=== PATIENT | male | born 1975 | race Caucasian/White ===

== ENCOUNTER 2019-03-21 14:31 | Emergency (ER) | payer OTHER ==
[2019-03-21 14:43] VITALS: BP 136/89
--- NOTE | 2019-03-21 14:59 | ED Physician Documentation ---
PD HPI BACK PAIN - Stated complaint Stated Complaint: BACK PX - Chief complaint Chief Complaint: Back Pain - History obtained from History obtained from: Patient - History of Present Illness Timing - onset: How many hours ago (1) Timing - duration: Hours (1) Timing - details: Abrupt onset Pain level max: 10 Pain level now: 4 Location: Lower Quality: Pain, Spasm Associated symptoms: No: Fever, Weakness, Numbness, Incontinent of urine, Unable to urinate, Hematuria, Incontinent of stool Improves with: Rest Worsened by: Movement Contributing factors: Lifting (moving furniture). No: Twisting, Trauma, Anticoagulated, Cancer, IVDA, Out of meds Similar symptoms before: Diagnosis (back spasm in the past) Recently seen: Not recently seen - Additional information Additional information: did not take anything for pain today. Review of Systems Constitutional: denies: Fever, Chills Cardiac: denies: Chest pain / pressure Respiratory: denies: Cough GI: denies: Vomiting, Diarrhea Skin: denies: Rash Musculoskeletal: denies: Neck pain Neurologic: denies: Focal weakness, Numbness, Headache PD PAST MEDICAL HISTORY - Past Medical History Past Medical History: No - Past Surgical History Past Surgical History: No - Present Medications Home Medications: Ambulatory Orders Medication Instructions Recorded Confirmed Cyclobenzaprine [Flexeril] 10 mg PO TID PRN #20 tablet 03/21/19 Meloxicam [Mobic] 15 mg PO DAILY PRN #20 tablet 03/21/19 - Allergies Allergies/Adverse Reactions: Allergies Allergy/AdvReac Type Severity Reaction Status Date / Time No Known Drug Allergies Allergy Verified 03/21/19 14:37 - Social History Does the pt smoke?: No Smoking Status: Never smoker Does the pt drink ETOH?: No Does the pt have substance abuse?: No - Immunizations Immunizations are current?: Yes - POLST Patient has POLST: No PD ED PE NORMAL - Vitals Vital signs reviewed: Yes - General General: Alert and oriented X 3, No acute distress, Well developed/nourished - HEENT HEENT: Moist mucous membranes - Neck Neck: Supple, no meningeal sign - Cardiac Cardiac: RRR, Strong equal pulses - Respiratory Respiratory: No respiratory distress, Clear bilaterally - Abdomen Abdomen: Soft, Non tender, Non distended - Back Back: Other (no midline TTP. NVI. paraspinal spasm present. 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 Normal great toe extension bilaterally. no saddle anesthesia) - Psych Psych: Normal mood, Normal affect Results - Vitals Vitals: Vital Signs - 24 hr 03/21/19 14:35 Temperature 36.2 C L Heart Rate 94 Respiratory 18 Rate Blood Pressure 136/89 H O2 Saturation 98 PD MEDICAL DECISION MAKING - ED course Complexity details: re-evaluated patient, considered differential (No cauda equina, no spinal epidural abscess, no fracture, no aortic dissection or evidence of aneursym rupture), d/w patient ED course: Pain improved with toradol and flexeril. no evidence of fracture on exam. No evidence of cauda equina or epidural abscess. We will have him follow-up with his doctor for further care. No acute neurological deficits. Patient counseled regarding signs and symptoms for which I believe and urgent re-evaluation would be necessary. Patient with good understanding of and agreement to plan and is comfortable going home at this time This document was made in part using voice recognition software. While efforts are made to proofread this document, sound alike and grammatical errors may occur. Departure - Departure Disposition: 01 Home, Self Care Clinical Impression: Back muscle spasm Condition: Good Instructions: ED Spasm Back No Trauma Follow-Up: your,doctor in 3 days [Other] Prescriptions: Cyclobenzaprine [Flexeril] 10 mg PO TID PRN #20 tablet PRN Reason: Spasms Meloxicam [Mobic] 15 mg PO DAILY PRN #20 tablet PRN Reason: pain Comments: Return if you worsen. You should have an MRI of your lumbar spine with your doctor. Do not drive or operate heavy machinery while taking the Flexeril. Discharge Date/Time: 03/21/19 16:02
[2019-03-21] MEDS ORDERED: KETOROLAC 60 MG/2 ML VIAL IM STA (15:00)
[2019-03-21] MEDS ORDERED: CYCLOBENZAPRINE 10 MG TABLET PO STA (15:00)
== END 2019-03-21 16:02 | disposition home or self-care (01) ==
LOC: ED 14:31
DX: M62.830 Muscle spasm of back (principal); M54.5 Low back pain; X50.0XXA Overexertion from strenuous movement or load, initial encounter; Y93.89 Activity, other specified
CPT/HCPCS: 96372; 99283; 99284; A9270

== ENCOUNTER 2020-02-19 14:22 | Emergency (ER) | payer OTHER ==
--- NOTE | 2020-02-19 15:13 | ED Physician Documentation ---
History of Present Illness - Stated complaint Stated Complaint: BACK PX - Chief complaint Chief Complaint: Back Pain - History obtained from History obtained from: Patient, Family - History of Present Illness Timing: Today - Additonal information Additional information: 44 y/o male with acute back spasm after bending to pick something up has marked spasm of his back and is unable to move without severe pain. Review of Systems Constitutional: denies: Fever Ears: denies: Ear pain Nose: denies: Congestion Throat: denies: Sore throat Respiratory: denies: Cough GI: denies: Vomiting : denies: Dysuria, Frequency Skin: denies: Rash Musculoskeletal: reports: Back pain. denies: Neck pain, Extremity pain Neurologic: reports: Numbness (to fingertips). denies: Generalized weakness, Focal weakness PD PAST MEDICAL HISTORY - Past Medical History Past Medical History: No Cardiovascular: None Respiratory: None Neuro: None Endocrine/Autoimmune: None GI: None : None HEENT: None Psych: None Musculoskeletal: None Derm: None - Past Surgical History Past Surgical History: No - Present Medications Home Medications: Ambulatory Orders Medication Instructions Recorded Confirmed Cyclobenzaprine [Flexeril] 10 mg PO TID PRN #20 tablet 03/21/19 Meloxicam [Mobic] 15 mg PO DAILY PRN #20 tablet 03/21/19 Cyclobenzaprine [Flexeril] 10 mg PO TID PRN #20 tablet 02/19/20 Meloxicam 15 mg PO DAILY #20 tablet 02/19/20 - Allergies Allergies/Adverse Reactions: Allergies Allergy/AdvReac Type Severity Reaction Status Date / Time No Known Drug Allergies Allergy Verified 02/19/20 14:30 - Social History Does the pt smoke?: No Smoking Status: Never smoker Does the pt drink ETOH?: No Does the pt have substance abuse?: No - Immunizations Immunizations are current?: Yes - POLST Patient has POLST: No PD ED PE NORMAL - Vitals Vital signs reviewed: Yes (tachy and hypertensive ) - General General: Alert and oriented X 3, No acute distress, Well developed/nourished - HEENT HEENT: Atraumatic, PERRL, EOMI - Cardiac Cardiac: Other (tachy ) - Respiratory Respiratory: No respiratory distress - Abdomen Abdomen: Soft, Non tender - Back Back: No CVA TTP, No spinal TTP, Other (paraspinous muscle tenderness bilaterally ) - Derm Derm: Normal color, Warm and dry, No rash - Extremities Extremities: No deformity, No edema - Neuro Neuro: Alert and oriented X 3, 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, No motor deficit, No sensory deficit, Normal speech Eye Opening: Spontaneous Motor: Obeys Commands Verbal: Oriented GCS Score: 15 - Psych Psych: Normal mood, Normal affect Results - Vitals Vitals: Vital Signs - 24 hr 02/19/20 02/19/20 02/19/20 14:27 16:03 16:11 Temperature 37.1 C 36.4 C L 36.5 C Heart Rate 103 H 82 76 Respiratory 18 18 22 Rate Blood Pressure 145/105 H 133/93 H 133/93 H O2 Saturation 96 98 98 Oxygen O2 Source Room air Procedures - IVC sono (time) 1525 Bedside IVC sono: IVC measures (cm) (0.92), IVC collapsed c insp (cm) (complete), Dehydration (est 2 lilter deficit) PD MEDICAL DECISION MAKING - ED course Complexity details: reviewed results, re-evaluated patient, considered differential, d/w patient, d/w family ED course: 44-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 He has severe pain in his lower back and any movement causes pain to worsen. He does not remember drinking anything. Departure - Departure Disposition: 01 Home, Self Care Clinical Impression: Back muscle spasm, Dehydration Instructions: ED Spasm Back No Trauma, ED Dehydration Follow-Up: [facility] [Provider Group] Prescriptions: Cyclobenzaprine [Flexeril] 10 mg PO TID PRN #20 tablet PRN Reason: Spasms Meloxicam 15 mg PO DAILY #20 tablet Discharge Date/Time: 02/19/20 16:11
[2020-02-19] MEDS ORDERED: KETOROLAC 60 MG/2 ML VIAL IM STA (15:28)
[2020-02-19] MEDS ORDERED: CHERRY SYRUP 10 ML UDC PO ONE (15:29)
[2020-02-19] MEDS ORDERED: DEXAMETHASONE 10 MG/ML VIAL PO STA (15:29)
[2020-02-19 16:04] VITALS: BP 133/93
== END 2020-02-19 16:11 | disposition home or self-care (01) ==
LOC: ED 14:22
DX: M62.830 Muscle spasm of back (principal); M54.5 Low back pain; E86.0 Dehydration; R00.0 Tachycardia, unspecified
CPT/HCPCS: 96372; 99283; 99284; A9270

== ENCOUNTER 2020-12-18 13:00 | Outpatient (CLI) | payer OTHER ==
[2020-12-18 14:14] VITALS: BP 159/90
--- NOTE | 2020-12-18 14:14 | SLEEP CARE CONSULTATION ---
Information from patient questionnaire entered by Danyelle Cristobal. I have reviewed and concur with the information entered by Danyelle Cristobal. This document represents the service I personally performed and the decisions made by me, Smita Laird MD, [facility]. History of Present Illness Service Date and Time: 12/18/2020 1300 Reason for Visit: New patient Chief Complaint: reports: Unrefreshed sleep, Snoring, Fatigue, Frequent awakenings at night, Other (Sore throat, periods of insomnia, mental exhaustion) Date of Onset: 2 1/2 years Usual bedtime: Varies on work schedule Time it takes to fall asleep: Varies Snores at night: Yes Observed to quit breathing while asleep: No Sleeps alone due to snoring: Yes Number of times waking at night: 3-4 times Reasons for waking at night: reports: Snoring, Pain, Other (Noise, unknown reason) Toss, Turn, or Twitch while sleeping: Yes Recalls having dreams: No Usually gets out of bed at: Varies w/schedule Feels refreshed in the morning: No Morning headache: Yes (w/caffeine) Sleepy or fatigued during the day: Yes Ever fallen asleep while driving: Yes Takes day naps: Yes Dreams during day naps: No Prior sleep studies: No Additional HPI information: I had the pleasure of seeing Mr. Palacio today regarding the possibility of him having a sleep disorder. As you know, he is a 45 year old gentleman who complains of insomnia and loud snore. 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 This means he will have to wake up at 4:30 am and does not come home until 7:30 pm. He will then have 2 days off. His told him he snore loudly. She has never seen him quit breathing. He has wakened up from his own snore. He has morning headache that goes away quickly. He has fallen asleep driving. He has hypertension a took medication in the past. 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 Patient is and lives in [place]. Have you smoked in the past 12 months: No Alcohol use: Yes Alcohol amount and frequency: 3-5, 4 times a week Caffeine use: Yes Caffeine amount and frequency: 3-5 a day Family History Family history of sleep disordered breathing: No Allergies and Home Medications Drug allergies reviewed: Yes Home medication list reviewed: Yes (none) Review of Systems Weight gain over past 5 years: 20-25 Cardiovascular: reports: high blood pressure, have to sleep sitting up Respiratory: denies: shortness of breath, wheeze, sputum production, chronic cough, other Gastrointestinal: reports: heartburn, vomitting, diarrhea Urinary: reports: impotence Neurological: reports: headaches Psychiatric: reports: mood disorder, other (PTSD) Ear/Nose/Throat: reports: nasal congestion, sinus problems, dry mouth/throat, hoarseness, wisdom teeth removed Endocrine: reports: sluggishness (tired), increased appetite Musculoskeletal: reports: joint pain (stiffness), neck pain, back pain, muscle pain or cramping Immunologic: reports: sneezing (runny nose), itching Physical Exam Vital signs obtained and entered by: Dr. Laird Blood Pressure: 159/90 Heart Rate: 111 O2 Saturation: 98 Height: 5 ft 10 in Weight: 220 lb Body Mass Index: 31.5 BMI Classification: Obese Neck circumference: 17.5 Mood/affect: somewhat depressed HEENT: No craniofacial malformation Nostrils: patent to airflow Turbinates: normal Septum: midline Mouth and throat: narrow oropharynx Soft palate: long Hard palate: normal Uvula: normal Uvula visualization: 50% Mallampati Class II Tongue: normal in size Tonsils: small Chin and jaw: normal size and position Impression and Plan IMPRESSION: 1. Obstructive Sleep Apnea-Hypopnea Syndrome, as suggested by history of loud snoring, frequent awakenings during the night, unrefreshed sleep , cognitive impairment, and daytime hypersomnolence. Narrow oropharynx and obesity are common predisposing factors for obstructive sleep apnea-hypopnea syndrome. Untreated obstructive sleep apnea can also cause hypertension. For further evaluation, a home sleep apnea test (HSAT) will be ordered. Plan: 1. Schedule a home sleep apnea test (HSAT). 2. Avoid long distance driving or when feeling sleepy. 3. Avoid alcohol, sedative and muscle relaxant around bedtime. 4. Attempt to lose weight. 5. Return for follow up after the test. Counseling Topics: Weight control Follow up recommended for: High blood pressure Visit Type: In Office Time Spent with Patient (minutes): 15 Provider Statement: I spent 100% of the Face to Face Visit with the patient with greater than 50% spent counseling the patient and coordination of care.
== END 2020-12-18 13:01 | disposition home or self-care (01) ==
LOC: SC 13:00
PROVIDERS: ATTEND Internal Medicine Pulmonary Disease
DX: G47.10 Hypersomnia, unspecified (principal); R06.83 Snoring; G47.8 Other sleep disorders; R41.89 Other symptoms and signs involving cognitive functions and awareness; E66.9 Obesity, unspecified; Z68.31 Body mass index [BMI] 31.0-31.9, adult
CPT/HCPCS: 99202; 99212

== ENCOUNTER 2020-12-20 14:02 | Outpatient (CLI) | payer OTHER | END 2020-12-20 14:03 | disposition home or self-care (01) | LOC: SC 14:02 | PROVIDERS: ATTEND Internal Medicine Pulmonary Disease | DX: G47.33 Obstructive sleep apnea (adult) (pediatric) (principal); R09.02 Hypoxemia | CPT/HCPCS: 95806 ==

== ENCOUNTER 2020-12-27 14:28 | Outpatient (CLI) | payer OTHER ==
--- NOTE | 2020-12-27 14:58 | SLEEP CARE CONSULTATION ---
Information from patient questionnaire entered by Faith Juarez. I have reviewed and concur with the information entered by Faith Juarez. This document represents the service I personally performed and the decisions made by , Ale Ramirez ARNP. History of Present Illness Service Date and Time: 12/27/20201427 Initial [place] Sleepiness Scale score: 14 (in 2020) Current [place] Sleepiness Scale score: 17 Additional HPI information: BIBIANA HALE returns for follow up and results of the recently performed home sleep study. I explained the pathophysiology behind obstructive sleep apnea. We then spent quite a bit of time discussing different treatment options. For mild obstructive sleep apnea, surgery and oral appliance are alternatives to nasal CPAP therapy but in moderate or severe cases, nasal CPAP is the most effective and reliable treatment. Because apnea is primarily in supine position, then positional management therapy could be effective. Methods discussed such as positioning with pillows, using a T-shirt with tennis balls in the back, and shown commercial products that have a pillow format on back to prevent supine sleep. I reviewed the impact of weight changes on sleep apnea and strongly recommended losing weight. After some discussion, the patient opted to go with the nasal CPAP therapy. Nasal autoCPAP set at 4-15 cmH20 will be ordered with rationale explained. A manual titration study will be ordered if unable to find optimal pressure with office adjustments. I explained how CPAP machine works with sample devices Respironics Dreamstation and ResflexReceipts [id number] and what to expect when using the machine. Using CPAP every night in order to get used to it was emphasized. Patient advised to put CPAP mask on before getting into bed so as not to fall asleep without CPAP. To assist acclimation to CPAP use, it could also be used for a short time during day while reading or watching TV. The patient was instructed to call the CPAP supplier to discuss any mechanical problem that may occur. If the mask given is uncomfortable or is difficult to keep on through the night even with adjustment, contact the CPAP supplier as many will replace with another mask style if notified before 30 days. If snoring or perceives is not getting enough air or too much air from the machine, notify this office. [facility] patient education PAP tips reviewed and given to patient. Patient counseled not drink alcohol less than 4 hours before bedtime as it can increase snoring and apnea. Patient was cautioned about risks of drowsy driving until sleepiness symptoms resolve. Sleep Study - Results Type of Sleep Study: Home sleep study Prior sleep studies: No Polysomnography/Home Sleep Study results: Physician Impression: The quality of the study is good. The length of the study is adequate (> 240 minutes). Please also see the tabulated and graphic data. 1. Obstructive Sleep Apnea-Hypopnea (ICD-10 G47.33), moderate, with an AHI of 19.0/hr and rodo SaO2 of 77%. During the study, the patient had 65 apneas (64 obstructive, 1 central, 0 mixed) and 97 hypopneas. The longest episode lasted 74.5 seconds. The respiratory events occurred slightly more frequently during supine sleep (supine AHI was 25.9 and non-supine, 17.62). 2. Hypoxemia (ICD-10 R09.02), moderate, with the lowest oxygen saturation of 77 % and 18.4 minutes with SaO2 under 90%. Baseline oxygen saturation was normal (Average oxygen saturation was 93%). Allergies and Home Medications Home medication list reviewed: Yes (no changes) Review of Systems Review of systems same as previous: Yes (no changes) Physical Exam Heart Rate: 79 O2 Saturation: 98 Height: 5 ft 10 in Weight: 226 lb Body Mass Index: 32.4 BMI Classification: Obese Impression and Plan 1. Obstructive Sleep Apnea-Hypopnea Syndrome, moderate, with lowest oxygen saturation of 77%. Obviously this is the cause of the patients symptoms of unrefreshed sleep, and excessive daytime sleepiness. Positive pressure therapy could benefit hypertension, anxiety, gastric reflux and mood disorders. As mentioned above, the patient will be started on nasal autoCPAP therapy with pressure set at 4-15 cmH2O. A manual titration study will be completed if unable to find optimal treatment pressure with office adjustments. Compliance guidelines also reviewed. A copy of compliance guidelines will be given for reference at check out. Because the apnea is more severe supine, I instructed to avoid sleeping supine using pillow positioning until able to start CPAP use. 2. Hypoxemia, moderate, with the lowest oxygen saturation of 77 % and 18.4 minutes with SaO2 under 90%. His baseline oxygen saturation was normal with an average oxygen saturation of 93%. * Nasal auto CPAP therapy, pressure at 4-15 cm H2O. * Attempt to lose weight. * Avoid alcohol consumption near bedtime. * Avoid supine sleep until using CPAP. * The patient is again cautioned about driving until sleepiness completely resolves. * Return one month after CPAP obtained. I will assess response to therapy and compliance at that time. Counseling Topics: Weight loss health impact Visit Type: In Office Time Spent with Patient (minutes): 20 Provider Statement: I spent 100% of the Face to Face Visit with the patient with greater than 50% spent counseling the patient and coordination of care.
== END 2020-12-27 14:29 | disposition home or self-care (01) ==
LOC: SC 14:28
PROVIDERS: ATTEND Nurse Practitioner Family
DX: G47.33 Obstructive sleep apnea (adult) (pediatric) (principal); R09.02 Hypoxemia; E66.9 Obesity, unspecified; Z68.32 Body mass index [BMI] 32.0-32.9, adult
CPT/HCPCS: 99212; 99213

== ENCOUNTER 2021-02-21 10:19 | Outpatient (CLI) | payer OTHER ==
--- NOTE | 2021-02-21 10:37 | SLEEP CARE CONSULTATION ---
Information from patient questionnaire entered by Danyelle Cristobal. I have reviewed and concur with the information entered by Danyelle Cristobal. This document represents the service I personally performed and the decisions made by , Ale Ramirez ARNP. History of Present Illness Service Date and Time: 02/21/2021 1019 Previous diagnosis: Moderate, Obstructive Sleep Apnea-Hypopnea Syndrome AHI: 19.0 Reason for follow up: first compliance (Set up 01/19) Equipment obtained from: Other ([facility]; got initial supplies) Mask style: Full face Backup mask available: No (will keep old mask when replaced) Last cushion change: almost a full month Prior sleep studies: No Year and Where: 2020 [facility] Type of Sleep Study: Home sleep study HPI additional information: BIBIANA HALE was diagnosed to have moderate, AHI 19.0, obstructive sleep apnea-hypopnea syndrome and returned today for CPAP therapy first compliance follow-up. CPAP Compliance Data - Data Reviewed with Patient Average duration of nightly device use: 6 h 3 min Compliance rate %: 83 Current pressure setting (cmH2O): 4-15 Average residual AHI: 1.3 Central apnea: 0.1 Obstructive apnea: 0.4 Subjective Missed days of use due to: reports: travel Patient concerns: reports: other (some skin dryness where mask sits on face/cheeks). denies: aerophagia, mask discomfort, air blowing in eyes, mask leak noise, condensation in mask/hose, nasal congestion, dry mouth, nose, throat, epistaxis Observed to snore while using device: No Current pressure setting perceived as: comfortable On therapy, patient: reports: sleeping better, awakening more refreshed, being more awake and alert during the day, more rested overall, other. denies: drowsiness while driving Initial [place] Sleepiness Scale score: 14 (in 2020) Current [place] Sleepiness Scale score: 9 Allergies and Home Medications Home medication list reviewed: Yes (no changes) Review of Systems Review of systems same as previous: Yes (no changes) Physical Exam Heart Rate: 85 O2 Saturation: 97 Height: 5 ft 10 in Weight: 219 lb Body Mass Index: 31.4 BMI Classification: Obese Impression and Plan 1. Obstructive Sleep Apnea-Hypopnea Syndrome, moderate, with good treatment compliance and good apnea control. On CPAP therapy, the patient has better sleep quality and is more rested overall. The patients pressure will be changed to autoCPAP 7-11 cmH20. Patient advised to contact me if pressure change is uncomfortable so that it can be adjusted. Goals for apnea control discussed. He has had some dry skin irritation where the full face mask touches the sides of his nose and cheeks. He states it is not very irritating and thinks it will resolve on his own. I did inform him that there are mask liners that can put a barrier between the mask and his skin if it does not resolve on its own. He voiced understanding and agreement with plan of care. Patient's apnea severity and rationale for treatment to reduce apnea, improve sleep quality and reduce cardiovascular and cerebrovascular events was reviewed. I also reviewed the benefit of consistent device use of CPAP for hypertension, gastric reflux, anxiety, and mood disorder. * Change auto CPAP pressure to 7-11 cmH2O * Mask liners if skin irritation does not resolve with time or worsens * Notify me if snoring with mask or feeling that the pressure is too much or too little * Attempt to lose weight * Call this office if any problems using CPAP * Return for follow up in 1-2 months, or sooner if concerns arise Counseling Topics: Spare mask, Weight loss health impact Visit Type: In Office Time Spent with Patient (minutes): 20 Provider Statement: I spent 100% of the Face to Face Visit with the patient with greater than 50% spent counseling the patient and coordination of care.
== END 2021-02-21 10:20 | disposition home or self-care (01) ==
LOC: SC 10:19
PROVIDERS: ATTEND Nurse Practitioner Family
DX: G47.33 Obstructive sleep apnea (adult) (pediatric) (principal); E66.9 Obesity, unspecified; Z68.31 Body mass index [BMI] 31.0-31.9, adult
CPT/HCPCS: 99212; 99213

== ENCOUNTER 2021-04-04 09:38 | Outpatient (CLI) | payer OTHER ==
--- NOTE | 2021-04-04 10:25 | SLEEP CARE CONSULTATION ---
Information from patient questionnaire entered by Faith Juarez. I have reviewed and concur with the information entered by Faith Juarez. This document represents the service I personally performed and the decisions made by , Ale Ramirez ARNP. History of Present Illness Service Date and Time: 04/04/2021 0938 Previous diagnosis: Moderate, Obstructive Sleep Apnea-Hypopnea Syndrome AHI: 19.0 (in 2020) Reason for follow up: other (6 week with pressure change) Equipment type: CPAP Equipment obtained from: Other ([facility]; got initial supplies) Mask style: Full face Backup mask available: Yes (old mask) Last cushion change: 1-2 weeks ago Prior sleep studies: Yes Year and Where: 2020 [facility] Type of Sleep Study: Home sleep study HPI additional information: BIBIANA HALE was diagnosed to have moderate, AHI 19.0, obstructive sleep apnea-hypopnea syndrome and returned today for CPAP therapy 6 week pressure change follow-up. CPAP Compliance Data - Data Reviewed with Patient Average duration of nightly device use: 5 hr 24 min Compliance rate %: 45 (42 days) Current pressure setting (cmH2O): 7-11 (median 8.4, avg 10.0, max 10.2) Humidity setting: auto Heated hose setting: auto Average residual AHI: 1.6 Subjective Missed days of use due to: reports: illness, other (allergies; not having regular sleep schedule) Patient concerns: reports: aerophagia (waking up 2-3 times a night to burp (has to burp)), nasal congestion (just in general due to allergies), other (wake up to burp). denies: mask discomfort, air blowing in eyes, mask leak noise, condensation in mask/hose, dry mouth, nose, throat, epistaxis Observed to snore while using device: No Current pressure setting perceived as: comfortable On therapy, patient: reports: sleeping better, awakening more refreshed (and is more clear headed during the day), being more awake and alert during the day, more rested overall. denies: drowsiness while driving Initial [place] Sleepiness Scale score: 14 (in 2020) Current [place] Sleepiness Scale score: 15 Allergies and Home Medications Home medication list reviewed: Yes (no changes) Review of Systems Review of systems same as previous: Yes (no changes) Physical Exam Heart Rate: 93 O2 Saturation: 97 Height: 5 ft 10 in Weight: 216 lb Body Mass Index: 30.9 BMI Classification: Obese Impression and Plan 1. Obstructive Sleep Apnea-Hypopnea Syndrome, moderate, with fair treatment compliance and good apnea control. On CPAP therapy, the patient has better sleep quality and is more rested overall. Patient is waking up several times a night because he has to burp. This sounds like he may benefit from a lower pressure. His AHI is well controlled at 1.6. To reduce symptoms of aerophagia, the CPAP p ressure will be reduced to 8-9 cmH2O. Patient advised to contact me if this does not reduce symptoms or if pressure change uncomfortable. Patient has since retired from the . He does not have a regular schedule and has had difficulties going to sleep. He has had times where he has stayed up 1 to 3 days before crashing and sleeping. He has been trying to use his CPAP and does feel benefit from using it. Compliance guidelines reviewed for insurance coverage. Patient was counseled on the difference between meeting compliance and optimal use of CPAP. Optimal use of CPAP is use of CPAP with all sleep to obtain maximum benefit of treatment. Patient is encouraged to use CPAP with all sleep. Patient encouraged to try to get on a set schedule, starting with getting up at the same time every morning to reset his homeostatic drive. He voiced understanding. Patient's apnea severity and rationale for treatment to reduce apnea, improve sleep quality and reduce cardiovascular and cerebrovascular events was reviewed. I also reviewed the benefit of consistent device use of CPAP for hypertension, gastric reflux, anxiety and mood disorder. Patient encouraged to try to lose weight. * Change auto CPAP pressure to 8-9 cmH2O * Notify me if snoring with mask or feeling that the pressure is too much or too little * Attempt to lose weight * Call this office if any problems using CPAP * Return for follow up in 3 months, or sooner if concerns arise Counseling Topics: Spare mask, Weight loss health impact Visit Type: In Office Time Spent with Patient (minutes): 21 Provider Statement: I spent 100% of the Face to Face Visit with the patient with greater than 50% spent counseling the patient and coordination of care.
== END 2021-04-04 09:39 | disposition home or self-care (01) ==
LOC: SC 09:38
PROVIDERS: ATTEND Nurse Practitioner Family
DX: G47.33 Obstructive sleep apnea (adult) (pediatric) (principal); E66.9 Obesity, unspecified; Z68.30 Body mass index [BMI] 30.0-30.9, adult
CPT/HCPCS: 99212; 99213

== ENCOUNTER 2021-06-05 09:46 | Outpatient (CLI) | payer OTHER ==
[2021-06-05 10:15] VITALS: BP 126/82
--- NOTE | 2021-06-05 10:15 | SLEEP CARE CONSULTATION ---
Information from patient questionnaire entered by Elizabeth Tello. I have reviewed and concur with the information entered by Elizabeth Tello. This document represents the service I personally performed and the decisions made by , Ale Ramirez ARNP. History of Present Illness Service Date and Time: 06/05/2021 0946 Previous diagnosis: Moderate, Obstructive Sleep Apnea-Hypopnea Syndrome AHI: 19.0 Reason for follow up: other (2 months with pressure change) Equipment type: CPAP Equipment obtained from: Other ([facility]; getting supplies as needed) Mask style: Full face Backup mask available: Yes (other mask) Last cushion change: unsure Prior sleep studies: Yes Year and Where: 2020 [facility], [place] Type of Sleep Study: Home sleep study HPI additional information: BIBIANA HALE was diagnosed to have moderate, AHI 19.0, obstructive sleep apnea-hypopnea syndrome and returned today for CPAP therapy two month with pressure change follow-up. Sleep Study - Results Type of Sleep Study: Home sleep study Prior sleep studies: Yes Year and Where: 2020 [facility] [place] CPAP Compliance Data - Data Reviewed with Patient Average duration of nightly device use: 5 hours 18 minutes Compliance rate %: 60 Current pressure setting (cmH2O): 8-9 Average residual AHI: 0.9 Central apnea: .1 Obstructive apnea: .3 Hypopnea: .5 Subjective Missed days of use due to: reports: illness (sinus infection, sinusitis) Patient concerns: reports: aerophagia (better, not having as much, 1-2 a month), condensation in mask/hose (in last 2 weeks), nasal congestion, dry mouth, nose, throat (occasional dry mouth). denies: mask discomfort, air blowing in eyes, mask leak noise, epistaxis, other Observed to snore while using device: No Current pressure setting perceived as: comfortable On therapy, patient: reports: sleeping better, awakening more refreshed, being more awake and alert during the day, more rested overall. denies: drowsiness while driving Initial [place] Sleepiness Scale score: 14 (in 2020) Current [place] Sleepiness Scale score: 11 Allergies and Home Medications Home medication list reviewed: Yes (no changes) Review of Systems Review of systems same as previous: Yes (no changes) Physical Exam Blood Pressure: 126/82 Cuff size: long Heart Rate: 98 O2 Saturation: 95 Height: 5 ft 10 in Weight: 220 lb Body Mass Index: 31.5 BMI Classification: Obese Impression and Plan 1. Obstructive Sleep Apnea-Hypopnea Syndrome, moderate, with fair treatment compliance and excellent apnea control. On CPAP therapy, the patient has better sleep quality and is more rested overall. He has been having some occasionally dry mouth and some condensation leaking on his pillow. He was advised to adjust his heated hose up to see if this reduces the condensation. He does have some oral dryness but states this is not often. Patient was encouraged to lose weight for their overall health and to reduce apneas. Patient's apnea severity and rationale for treatment to reduce apnea, improve sleep quality and reduce cardiovascular and cerebrovascular events was reviewed. I also reviewed the benefit of consistent device use of CPAP for hypertension, gastric reflux, anxiety and mood disorder. * Continue auto CPAP pressure at 8-9 cmH2O * Notify me if snoring with mask or feeling that the pressure is too much or too little * Attempt to lose weight * Call this office if any problems using CPAP * Return for follow up in 6 months, or sooner if concerns arise Counseling Topics: Spare mask, Weight loss health impact Visit Type: In Office Time Spent with Patient (minutes): 21 Provider Statement: I spent 100% of the Face to Face Visit with the patient with greater than 50% spent counseling the patient and coordination of care.
== END 2021-06-05 09:47 | disposition home or self-care (01) ==
LOC: SC 09:46
PROVIDERS: ATTEND Nurse Practitioner Family
DX: G47.33 Obstructive sleep apnea (adult) (pediatric) (principal); E66.9 Obesity, unspecified; Z68.31 Body mass index [BMI] 31.0-31.9, adult
CPT/HCPCS: 99212; 99213

== ENCOUNTER 2021-09-13 20:48 | Emergency (ER) | payer OTHER ==
--- NOTE | 2021-09-13 21:50 | ED Physician Documentation ---
History of Present Illness - Stated complaint Stated Complaint: L FOOT NUMBNESS,BACK PX - Chief complaint Chief Complaint: Ext Problem - History obtained from History obtained from: Patient - History of Present Illness Timing: How many hours ago (2-3) Pain level max: 0 Pain level now: 0 Improved by: nothing Worsened by: no exacerbating factors - Additonal information Additional information: while walking this evening, patient became aware his left foot wasnt working (per patient). He felt as though his left foot was functioning like if you had a scuba flipper on it. He went back inside and took his shoe and sock off and he was able to narrow down the deficit to inability to dorsiflex the left great toe. He denies numbness/paresthesias. He also feels some minimal weakness in left ankle flexion (dorsiflexion). he denies h/o similar symptoms. No other neurologic deficits or new symptoms. He does note bilateral low back tightness, R>L, but this is a recurrent/chronic symptom. Review of Systems Musculoskeletal: reports: Back pain. denies: Neck pain, Extremity pain, Joint pain, Extremity swelling, Joint swelling, Pain with weight bearing Neurologic: reports: Focal weakness. denies: Generalized weakness, Numbness PD PAST MEDICAL HISTORY - Past Medical History Cardiovascular: None Respiratory: None Neuro: None Endocrine/Autoimmune: None GI: None : None HEENT: None Psych: None Musculoskeletal: None Derm: None - Past Surgical History Past Surgical History: No - Present Medications Home Medications: Ambulatory Orders Medication Instructions Recorded Confirmed No Known Home Medications 09/13/21 09/13/21 - Allergies Allergies/Adverse Reactions: Allergies Allergy/AdvReac Type Severity Reaction Status Date / Time No Known Drug Allergies Allergy Verified 09/13/21 21:02 - Social History Does the pt smoke?: No Smoking Status: Never smoker Does the pt drink ETOH?: Yes Does the pt have substance abuse?: No - Immunizations Immunizations are current?: Yes - POLST Patient has POLST: No PD ED PE NORMAL - Vitals Vital signs reviewed: Yes - General General: Alert and oriented X 3, No acute distress, Well developed/nourished - Back Back: No CVA TTP, No spinal TTP - Derm Derm: Normal color, Warm and dry - Extremities Extremities: No deformity, No tenderness to palpate, No edema, No calf tenderness / cord - Neuro Neuro: No sensory deficit (LTS intact LLE) PD ED PE EXPANDED - Neuro Neuro: Normal reflexes (patellar, ankle jerk), Other (full strength extension/flexion all ten toes EXCEPT unable to dorsiflex left great toe. 1/5 left great toe extention, 4/5 left ankle dorsiflexion (only noted when compared to right). ) Results - Vitals Vitals: Oxygen O2 Source Room air - Rads (name of study) lumbar xrays Radiology: Prelim report reviewed, See rad report PD MEDICAL DECISION MAKING - ED course Complexity details: reviewed results, re-evaluated patient, considered differential, d/w patient ED course: nerve impingement of peroneal nerve (foot drop) is suspected, although minimal loss of strength of left ankle dorsiflexion at this time. If this were to progress, would be more likely to be the etiology. Impingement at vertebra also possible (DDD, herniated disc, spinal stenosis); plain films are without significant findings (mild degenerative changes). Suspected diagnosis d/w patient (nerve impingement) and that he will likely need further testing but this can be undertaken in outpatient setting (such as EMG, MRI). Return precautions discussed. I offered to splint as a means to prevent him from tripping/catching the foot when stepping over objects or walking up stairs. He feels this is unnecessary, as his foot is not dropping although he is made aware that it might progress to a more prominent foot drop and as such would benefit from splinting to prevent trips/falls. Departure - Departure Disposition: 01 Home, Self Care Clinical Impression: Weakness Condition: Good Instructions: ED Foot Drop Comments: As we discussed, there does not appear to be an emergency medical condition at this time, but you certainly need to be reevaluated for your symptoms; you will likely need other testing unless the symptoms resolve (although you might still benefit from testing even if they do; any outpatient testing would be at the discretion of your primary care provider). Discharge Date/Time: 09/14/21 01:05
--- NOTE | 2021-09-14 00:33 | XRAY Report ---
PROCEDURE: Lumbar Spine 2 View INDICATIONS: low back pain, left foot weakness TECHNIQUE: 2 views of the lumbar spine were acquired. COMPARISON: None. FINDINGS: Bones: 5 [id number] vertebrae are present. There is straightening of normal lumbar lordosis. De generative endplate changes and bilateral facet arthrosis at L5-S1 level is seen.. No vertebral body compression fractures. No suspicious bony lesions. Soft tissues: Overlying bowel gas pattern is normal. No suspicious soft tissue calcifications. IMPRESSION: No acute compression fracture or spondylolisthesis and lumbar spine. Bilateral facet art hrosis and mild degenerative endplate changes at L5-S1 level. Reviewed by: Joel Morataya MD on 09/14/2021 12:32 AM PST Approved by: Joel Morataya MD on 09/14/2021 12:32 AM PST Station ID: [id number]
[2021-09-14 01:20] VITALS: BP 127/80
== END 2021-09-14 01:05 | disposition home or self-care (01) ==
LOC: ED 20:48
DX: R53.1 Weakness (principal)
CPT/HCPCS: 99283

== ENCOUNTER 2022-02-04 05:24 | Emergency (ER) | payer OTHER ==
[2022-02-04 05:37] VITALS: BP 139/89
[2022-02-04] MEDS ORDERED: cephALEXin 250 MG CAPSULE PO STA (06:14)
[2022-02-04] MEDS ORDERED: diphenhydrAMINE 25 MG CAPSULE PO STA (06:14)
--- NOTE | 2022-02-04 06:23 | ED Physician Documentation ---
PD HPI UPPER EXT INJURY - Stated complaint Stated Complaint: R ARM SWELLING - Chief complaint Chief Complaint: Ext Problem - History obtained from History obtained from: Patient - Additonal information Additional information: Patient is a 46-year-old male with no significant past medical history presen ting for evaluation of right upper extremity swelling and redness that he noticed around 1:00 this morning. He checked his arm when he had the feeling that it was tight. He denies any known trauma or injury. He denies any known allergic exposures or insect bite.He has not taken anything for his symptoms. He denies history of DVT. He has not recently had any procedures or IVs placed in the arm.He denies concern for foreign body. He denies IV drug use. Review of Systems Constitutional: denies: Fever Nose: denies: Congestion Cardiac: denies: Chest pain / pressure Respiratory: denies: Dyspnea, Cough GI: denies: Abdominal Pain Skin: reports: Rash Musculoskeletal: reports: Extremity swelling Neurologic: denies: Headache PD PAST MEDICAL HISTORY - Past Medical History Cardiovascular: None Respiratory: None Neuro: None Endocrine/Autoimmune: None GI: None : None HEENT: None Psych: None Musculoskeletal: None Derm: None - Past Surgical History Past Surgical History: No - Present Medications Home Medications: Ambulatory Orders Medication Instructions Recorded Confirmed cephALEXin [Keflex] 500 mg PO Q6H #28 cap 02/04/22 - Allergies Allergies/Adverse Reactions: Allergies Allergy/AdvReac Type Severity Reaction Status Date / Time No Known Drug Allergies Allergy Verified 02/04/22 05:37 - Social History Does the pt smoke?: No Smoking Status: Never smoker Does the pt drink ETOH?: Yes Does the pt have substance abuse?: No - Immunizations Immunizations are current?: Yes - POLST Patient has POLST: No PD ED PE NORMAL - General General: Alert and oriented X 3, No acute distress, Well developed/nourished - HEENT HEENT: Atraumatic, Moist mucous membranes - Neck Neck: Supple, no meningeal sign - Cardiac Cardiac: RRR, No murmur, Strong equal pulses - Respiratory Respiratory: No respiratory distress, Clear bilaterally - Neuro Neuro: No motor deficit, No sensory deficit PD ED PE EXPANDED - Extremities Extremities: Right arm (Large localized area of faint erythema and swellingWith no palpable fluctuance, Normal range of motion at all joints), Motor intact, Sensory intact, Vascular intact. No: Deformity, Limited ROM SUKH UE/Hands Visual: 1 - rash, swelling Results - Vitals Vitals: Vital Signs - 24 hr 02/04/22 05:34 Temperature 36.4 C L Heart Rate 85 Respiratory 18 Rate Blood Pressure 139/89 H O2 Saturation 99 Oxygen O2 Source Room air PD MEDICAL DECISION MAKING - ED course Complexity details: d/w patient, d/w family ED course: Patient with localized area of redness and swelling to the right upper extremity. Based on the appearance, I do not believe this suggests a DVT as it is localized to a certain portion of the arm And there is no distal swelling. No open wounds or skin breaks visible. Patient is neurovascularly intact with no Bony tenderness and full range of motion at all joints. I will start the pa tient on a course of Keflex for possible cellulitis. I did explain I also had concerns it could be related to an allergic process and advised on using Benadryl, ice and elevation to see if this helps. Patient and are aware of strict return precautions for any worsening symptoms. No chest pain or difficulty breathing. Departure - Departure Disposition: 01 Home, Self Care Clinical Impression: Dermatitis Condition: Stable Instructions: ED Allergic Reaction Local Other, ED Infec Skin Cellulitis Prescriptions: cephALEXin [Keflex] 500 mg PO Q6H #28 cap Comments: You were evaluated for Redness and swelling to a portion of your right arm. Because The affected area is so localized and because you do not have risk factors, I do not believe this is related to a blood clot in your arm. I am goi ng to start you on an antibiotic to help treat skin infections, Called Keflex. I will send this prescription to [facility] in [place]. Because it came on so quickly, it could also be related to an allergic process and I do recommend using Benadryl and also icing/elevating the arm As this may help. Please return to the emergency department if there is worsening or you develop any new symptoms such as fever, chest pain, trouble breathing. Discharge Date/Time: 02/04/22 06:29
== END 2022-02-04 06:29 | disposition home or self-care (01) ==
LOC: ED 05:24
DX: L30.9 Dermatitis, unspecified (principal)
CPT/HCPCS: 99282; 99283; A9270

== ENCOUNTER 2024-03-05 10:56 | Outpatient (CLI) | payer OTHER ==
--- NOTE | 2024-03-05 21:52 | Ultrasound Report ---
PROCEDURE: Abdomen Limited INDICATIONS: LUQ ABD PAIN TECHNIQUE: Real-time focused scanning was performed of the abdomen, with image documentation. COMPARISONS: None. FINDINGS: Spleen is normal in size and measures 10.9 x 4.4 x 4.0 cm. Left kidney measures 11.6 cm in length and 1.03 cm in renal cortical thickness. No hydronephrosis or solid appearing renal lesion. No left urolithiasis. No abdominal free fluid. IMPRESSION: Unremarkable left upper quadrant abdominal ultrasound. Reviewed by: Joel Morataya MD on 03/05/2024 9:51 PM PDT Approved by: Joel Morataya MD on 03/05/2024 9:51 PM PDT Station ID: [id number]
== END 2024-03-05 10:57 | disposition home or self-care (01) ==
LOC: DI 10:56
PROVIDERS: ATTEND Internal Medicine
DX: R10.12 Left upper quadrant pain (principal)